=== PATIENT | male | born 1975 ===

== ENCOUNTER 2017-02-19 13:59 | Emergency (ER) | payer MEDICARE, OTHER ==
[2017-02-19] MEDS ORDERED: Sodium Chloride 0.9% 1,000 ML IV ONE (14:30)
[2017-02-19 14:47] LABS: BASO % 0.8 % (0.0-2.0); EOS # 0.1 K/uL (0.0-0.7); EOS % 1.9 % (0.0-4.0); LYMPH % 30.3 % (20.0-40.0); MEAN CELL VOLUME 84.2 fL (80.0-94.0); MEAN CORPUSCULAR HEMOGLOBIN 29.4 pg (27.0-31.0); MONO # 0.3 K/uL (0.0-0.8); MONO % 5.3 % (0.0-10.0); NRBC % 0.1 % (0.0-2.0); RED CELL DISTRIBUTION WIDTH 12.4 % (11.5-14.5); WHITE BLOOD COUNT 6.6 K/uL (4.8-10.8)
[2017-02-19 14:52] LABS: RBC URINE < 1 /hpf (0-3); URINE BILIRUBIN NEGATIVE (NEGATIVE); URINE BLOOD NEGATIVE (NEGATIVE); URINE COLOR Colorless (YELLOW); URINE GLUCOSE (UA) 3+ mg/dL (Normal); URINE KETONE NEGATIVE (NEGATIVE); URINE LEUKOCYTE ESTERASE NEG Leu/uL (Negative); URINE PROTEIN NEGATIVE (NEGATIVE); URINE UROBILINOGEN NORMAL mg/dL (0.2-1.0); WBC URINE < 1 /hpf (0-5)
[2017-02-19 15:01] LABS: CHLORIDE 92 mmol/L (98-107); POTASSIUM 4.6 mmol/L (3.6-5.2); SODIUM 131 mmol/L (132-148)
[2017-02-19 15:03] LABS: BILIRUBIN,TOTAL 0.5 mg/dL (0.2-1.3); CARBON DIOXIDE 22 mmol/L (22-30); GFR AFRICAN-AMERICAN > 60
[2017-02-19 15:04] LABS: ALB/GLOB RATIO 1.2 (1.0-2.1); ALKALINE PHOSPHATASE 132 U/L (38-126); ALT/SGPT 32 U/L (21-72); AST/SGOT 26 U/L (17-59); BLOOD UREA NITROGEN 20 mg/dL (9-20); CALCIUM 9.2 mg/dl (8.6-10.4); TOTAL PROTEIN 8.4 g/dL (6.3-8.3)
[2017-02-19] MEDS ORDERED: Sodium Chloride 0.9% 1,000 ML ONE (15:04)
[2017-02-19 15:05] LABS: ALCOHOL SERUM < 10 mg/dl (0-10)
--- NOTE | 2017-02-19 15:12 | C.PDOC ---
History Of Present Illness 41 y/o male presents to the ED for a psych evaluations. Pt was sent in from PMD because of increase depression. Pt notes being on medication for depression for not finding a job but notes medications not helping. Pt denies having suicidal or homicidal ideation, fever, chills, nausea, diarrhea, vomiting, or any other complaints. Pt is diabetic with blood sugar at 486. Time Seen by Provider: 02/19/17 14:19 Chief Complaint (Nursing): Psychiatric Evaluation History Per: Patient History/Exam Limitations: no limitations Onset/Duration Of Symptoms: Days Current Symptoms Are (Timing): Still Present Suicide/Self Injury Attempted (Context): None Modifying Factor(s): None Severity: Mild Associated Symptoms: Depression. denies: Suicidal Thoughts, Suicidal Plan Past Medical History Reviewed: Historical Data, Nursing Documentation, Vital Signs Vital Signs: Last Vital Signs Temp 98.3 F 02/19/17 16:30 Pulse 81 02/19/17 16:30 Resp 18 02/19/17 16:30 BP 111/73 02/19/17 16:30 Pulse Ox 97 02/19/17 17:04 - Medical History PMH: Depression, Diabetes (type 2), HTN, Schizophrenia - [facility] Procedures OTHER SKIN & SUBQ I D (12/08/13) Family History: States: Unknown Family Hx - Social History Hx Tobacco Use: Yes (heavy smoker) Hx Alcohol Use: Yes Hx Substance Use: No - Immunization History Hx Tetanus Toxoid Vaccination: No Hx Influenza Vaccination: Yes Hx Pneumococcal Vaccination: No Review Of Systems Except As Marked, All Systems Reviewed And Found Negative. Constitutional: Negative for: Fever, Chills Gastrointestinal: Negative for: Nausea, Vomiting, Diarrhea Psych: Positive for: Depression. Negative for: Suicidal ideation Physical Exam - Physical Exam Appears: Non-toxic, No Acute Distress Skin: Warm, Dry Head: Atraumatic, Normacephalic Eye(s): bilateral: Normal Inspection Chest: Symmetrical Cardiovascular: Rhythm Regular, No Murmur Respiratory: Normal Breath Sounds, No Rales, No Rhonchi, No Wheezing Gastrointestinal/Abdominal: Soft, No Tenderness Extremity: Normal ROM Neurological/Psych: Oriented x3, Normal Speech, Normal Cognition Gait: Steady ED Course And Treatment - Laboratory Results Result Diagrams: 02/19/17 14:37 02/19/17 14:37 Lab Interpretation: Abnormal O2 Sat by Pulse Oximetry: 97 (Room air) Pulse Ox Interpretation: Normal Progress Note: Treated with IVF NSS and Regular Insulin 5 Units IV. Case discussed and patient evaluated by crisis who will refer to outpatient services. On re-evaluation feeling better, BS 304. Discharged in stable condition Reassessment Condition: Improved Medical Decision Making Medical Decision Making: Plans: -Labs -IV fluids -Reassess and disposition Disposition Counseled Patient/Family Regarding: Studies Performed, Diagnosis, Need For Followup - Disposition Referrals: [facility] [Outside] [facility] [Outside] Disposition: HOME/ ROUTINE Disposition Time: 17:10 Condition: IMPROVED Additional Instructions: Take medications as directed Follow up with PMD for further evaluation Follow up with Psych clinic for further evaluation Instructions: Diabetic Hyperglycemia (ED) - POA Present On Arrival: None - Clinical Impression Clinical Impression: Hyperglycemia, Moderate major depression, single episode - Scribe Statement The provider has reviewed the documentation as recorded by the Scribe Yvonne davis All medical record entries made by the Scribe were at my direction and personally dictated by me. I have reviewed the chart and agree that the record accurately reflects my personal performance of the history, physical exam, medical decision making, and the department course for this patient. I have also personally directed, reviewed, and agree with the discharge instructions and disposition.
[2017-02-19 15:33] LABS: GLUCOSE,RANDOM 624 mg/dL (75-110)
[2017-02-19] MEDS ORDERED: (Novolin R) Insulin Human Regular 100 units/ml vial IV ONE (15:39)
[2017-02-19] MEDS ORDERED: (Novolin R) Insulin Human Regular 100 units/ml vial ONE (16:03)
[2017-02-19 16:31] VITALS: BP 111/73; PULSE 81; RESP 18; TEMP 98.3
[2017-02-19 17:03] VITALS: O2SAT 97
== END 2017-02-19 17:11 | disposition home or self-care (01) ==
LOC: C.ER 13:59
DX: F32.1 Major depressive disorder, single episode, moderate (principal); E11.65 Type 2 diabetes mellitus with hyperglycemia
CPT/HCPCS: 36415; 80053; 81001; 82009; 82948; 85025; 96360; 99284; G0480; J7040

== ENCOUNTER 2017-06-04 19:49 | Emergency (ER) | payer MEDICARE, MEDICAID ==
[2017-06-04 20:05] VITALS: TEMP 98
[2017-06-04] MEDS ORDERED: DiphenhydrAMINE 50 mg/ml Inj IM STA (20:57)
[2017-06-04 21:16] LABS: BASO % 0.5 % (0.0-2.0); EOS # 0.3 K/uL (0.0-0.7); HEMOGLOBIN 14.4 g/dL (12.0-18.0); LYMPH # 3.1 K/uL (1.0-4.3); LYMPH % 36.1 % (20.0-40.0); MEAN CELL VOLUME 83.5 fL (80.0-94.0); MEAN CORPUSCULAR HEMOGLOBIN 27.9 pg (27.0-31.0); MEAN CORPUSCULAR HGB CONC 33.5 g/dL (33.0-37.0); MEAN PLATELET VOLUME 7.7 fL (7.2-11.7); MONO # 0.6 K/uL (0.0-0.8); MONO % 6.5 % (0.0-10.0); NEUT # 4.6 K/uL (1.8-7.0); NEUT % 52.9 % (50.0-75.0); RBC 5.15 Mil/uL (4.40-5.90); RED CELL DISTRIBUTION WIDTH 12.4 % (11.5-14.5); WHITE BLOOD COUNT 8.7 K/uL (4.8-10.8)
--- NOTE | 2017-06-04 21:26 | C.PDOC ---
History Of Present Illness Patient is a 41 y/o male, whose PMHx includes diabetes, that presents to the ED for evaluation of facial muscle twitching for the past month. Pt reports associated nausea, but denies vomiting, or abdominal pain. Patient states that he has been on Risperdal for "years" and was told by PMD to stop it. Otherwise, patient denies any fever, chills, weakness, numbness, or any other associated symptoms at this time. Chief Complaint (Nursing): Weakness/Neurological Deficit History Per: Patient History/Exam Limitations: no limitations Current Symptoms Are (Timing): Still Present Severity: None Pain Scale Rating Of: 0 Recent travel outside of the [place]: No Additional History Per: Patient Past Medical History Reviewed: Historical Data, Nursing Documentation, Vital Signs Vital Signs: Last Vital Signs Temp 98.0 F 06/04/17 20:03 Pulse 97 H 06/04/17 20:03 Resp 16 06/04/17 20:03 BP 119/82 06/04/17 20:03 Pulse Ox 98 06/04/17 21:34 - Medical History PMH: Depression, Diabetes (type 2), HTN, Schizophrenia - [facility] Procedures OTHER SKIN & SUBQ I D (12/08/13) Family History: States: Unknown Family Hx - Social History Hx Tobacco Use: Yes (heavy smoker) Hx Alcohol Use: Yes Hx Substance Use: No - Immunization History Hx Tetanus Toxoid Vaccination: No Hx Influenza Vaccination: Yes Hx Pneumococcal Vaccination: No Review Of Systems Except As Marked, All Systems Reviewed And Found Negative. Constitutional: Positive for: Other (facial muscle twitching). Negative for: Fever, Chills Cardiovascular: Negative for: Chest Pain, Palpitations Respiratory: Negative for: Shortness of Breath Gastrointestinal: Positive for: Nausea. Negative for: Vomiting, Abdominal Pain , Diarrhea, Constipation Skin: Negative for: Rash Neurological: Negative for: Weakness, Numbness, Headache, Dizziness Physical Exam - Physical Exam Appears: Non-toxic, No Acute Distress Skin: Normal Color, Warm, Dry Head: Atraumatic, Normacephalic, Other (twitching of right facial muscles; chewing movement of right side of mouth) Eye(s): bilateral: Normal Inspection, EOMI Oral Mucosa: Moist Lips: Normal Appearing Neck: Normal ROM, Supple Chest: Symmetrical, No Tenderness Cardiovascular: Rhythm Regular, No Murmur Respiratory: Normal Breath Sounds, No Rales, No Rhonchi, No Wheezing Gastrointestinal/Abdominal: Soft, No Tenderness Extremity: Normal ROM Neurological/Psych: Oriented x3, Normal Speech, Normal Cognition, No Other (no focal deficits. Neurologically intact) ED Course And Treatment - Laboratory Results Result Diagrams: 06/04/17 21:10 06/04/17 21:10 O2 Sat by Pulse Oximetry: 98 (on RA) Pulse Ox Interpretation: Normal Progress Note: Blood work, urinalysis ordered and reviewed. Patient was treated with Benadryl, and Cogentin in the ER. Disposition Counseled Patient/Family Regarding: Diagnosis - Disposition Referrals: [facility] [Outside] Disposition: HOME/ ROUTINE Disposition Time: 21:52 Condition: STABLE Prescriptions: Benztropine [Benztropine Mesylate] 0.5 mg PO BID #20 tab Instructions: Extrapyramidal Symptoms (ED), Diabetes Mellitus Type 2 in Adults (ED) Forms: Gen Discharge Inst Congolese Print Language: ETHIOPIAN - POA Present On Arrival: None - Clinical Impression Clinical Impression: Extrapyramidal syndrome, Diabetes mellitus - Scribe Statement The provider has reviewed the documentation as recorded by the Scribe David Miranda All medical record entries made by the Maynoribnain were at my direction and personally dictated by me. I have reviewed the chart and agree that the record accurately reflects my personal performance of the history, physical exam, medical decision making, and the department course for this patient. I have also personally directed, reviewed, and agree with the discharge instructions and disposition.
[2017-06-04 21:27] LABS: ALBUMIN 4.3 g/dL (3.5-5.0)
[2017-06-04 21:29] LABS: GFR AFRICAN-AMERICAN > 60; GFR NON-AFRICAN AMERICAN > 60
[2017-06-04 21:30] LABS: ALB/GLOB RATIO 1.3 (1.0-2.1); ALT/SGPT 35 U/L (21-72); AST/SGOT 22 U/L (17-59); BLOOD UREA NITROGEN 20 mg/dL (9-20); CALCIUM 8.8 mg/dl (8.6-10.4)
[2017-06-04] MEDS ORDERED: DiphenhydrAMINE 50 mg/ml Inj IVP STA (21:37)
[2017-06-04] MEDS ORDERED: DiphenhydrAMINE 50 mg/ml Inj ONE (21:43)
[2017-06-04 22:28] VITALS: BP 105/65; PULSE 77; RESP 20; O2SAT 97
== END 2017-06-04 22:40 | disposition home or self-care (01) ==
LOC: C.ER 19:49
DX: G25.9 Extrapyramidal and movement disorder, unspecified (principal); E11.9 Type 2 diabetes mellitus without complications
CPT/HCPCS: 80053; 82009; 85025; 96372; 96374; 99285; J0515; J1200